=== PATIENT | male | born 1970 | race Caucasian/White ===

== ENCOUNTER 2019-06-14 17:28 | Emergency (ER) | payer MEDICAID, SELFPAY ==
[2019-06-14 17:30] VITALS: BP 141/69; PULSE 79; RESP 16; TEMP 36.6; O2SAT 99; BMI 36.9
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
== END 2019-06-14 18:54 | disposition home or self-care (01) ==
LOC: ED 18:44
PROVIDERS: Emergency Provider Emergency Medicine; PCP Family Medicine
DX: S61.211A Laceration without foreign body of left index finger without damage to nail, initial encounter (principal); S61.012A Laceration without foreign body of left thumb without damage to nail, initial encounter; Z87.891 Personal history of nicotine dependence; W26.0XXA Contact with knife, initial encounter; Y93.89 Activity, other specified; Y92.009 Unspecified place in unspecified non-institutional (private) residence as the place of occurrence of the external cause; Y99.8 Other external cause status
CPT/HCPCS: 12002; 99283

== ENCOUNTER → 2019-06-23 | Outpatient (CLI) | payer MEDICAID, SELFPAY ==
[2019-06-14 17:30] VITALS: BMI 36.9
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
== END | disposition home or self-care (01) ==
PROVIDERS: PCP Family Medicine; Referring Provider Family Medicine; Visit Provider Family Medicine
DX: S60.221A Contusion of right hand, initial encounter (principal)
CPT/HCPCS: 73130

== ENCOUNTER → 2019-07-10 | Outpatient (CLI) | payer MEDICAID, SELFPAY ==
[2019-06-14 17:30] VITALS: BMI 36.9
[2019-07-10 18:20] LABS: AST(SGOT) 23 U/L (15-37); Alanine Aminotransfer ALT/SGPT 51 U/L (16-61); Albumin, Serum 3.7 g/dL (3.2-5.0); Alkaline Phosphatase 109 U/L (45-117); Anion Gap 8 (5-15); BUN 21 mg/dL (7-18); BUN/Creat Ratio 19.1 RATIO (10-20); Calcium,Total 9.2 mg/dL (8.5-10.1); Chloride 98 mmol/L (98-107); Cholesterol 149 mg/dL (200); EST Glomerular Filtration Rate 76 mL/min (>60); Est Glom Filt Rate - Afr Amer 91 mL/min (>60); Globulin 3.8 g/dL (2.2-4.2); Glucose 258 mg/dL (74-106); High Density Lipoprotein 32 mg/dL; Potassium 4.6 mmol/L (3.5-5.1); Protein, Total 7.5 g/dL (6.4-8.2); Sodium Level 135 mmol/L (136-145); T4 Total, Thyroxin 8.2 ug/dL (4.5-12.1); Thyroid Stim Hormone (TSH) 1.82 uIU/mL (0.358-3.74); Triglycerides 216 mg/dL; Very Low Density Lipoprotein 43 mg/dL (5-40)
[2019-07-10 20:04] LABS: Hemoglobin A1c 10.5 % (3.8-5.6)
[2019-07-11 11:10] LABS: Microalbumin,Random Urine < 5.0 mg/L (NO RANGE EST.)
== END | disposition home or self-care (01) ==
LOC: MFPLAB 14:52
PROVIDERS: PCP Family Medicine; Referring Provider Family Medicine; Visit Provider Family Medicine
DX: E03.9 Hypothyroidism, unspecified (principal); E11.9 Type 2 diabetes mellitus without complications
CPT/HCPCS: 36415; 80048; 80061; 80076; 82043; 82570; 83036; 84436; 84443

== ENCOUNTER → 2019-07-21 | Outpatient (CLI) | payer MEDICAID, SELFPAY ==
[2019-07-17 09:24] VITALS: BMI 36.9
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
== END | disposition home or self-care (01) ==
LOC: MRI 16:50
PROVIDERS: PCP Family Medicine; Referring Provider Physician Assistant; Visit Provider Physician Assistant
DX: S69.91XA Unspecified injury of right wrist, hand and finger(s), initial encounter (principal)
CPT/HCPCS: 73218

== ENCOUNTER 2019-08-14 10:30 | Outpatient (RCR) | payer MEDICAID, SELFPAY ==
[2019-07-17 09:24] VITALS: BMI 36.9
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
== END 2019-08-14 19:00 | disposition home or self-care (01) ==
LOC: OT 10:30
PROVIDERS: PCP Family Medicine; Referring Provider Physician Assistant; Visit Provider Physician Assistant
DX: S69.91XD Unspecified injury of right wrist, hand and finger(s), subsequent encounter (principal)
CPT/HCPCS: 97035; 97110; 97140; 97166; 97530

== ENCOUNTER → 2019-12-13 06:26 | Outpatient (CLI) | payer MEDICAID, SELFPAY ==
[2019-10-25 09:43] VITALS: BMI 36.9
--- NOTE | 2019-12-13 14:02 | NEURO ---
NCS and/or EMG Patient Report Ordering Doctor: Ned Burden DATE OF SERVICE: 12/13/19 Hemant Taylor presents for electrodiagnostic testing of the right upper limb. He reports numbness, primarily in the fifth digit of the right hand. Electrodiagnostic findings: Right median motor nerve demonstrates normal distal latency with normal amplitude and reduced conduction velocity. Normal ulnar motor response, including conduction across the elbow. Borderline prolonged right ulnar F wave. Prolonged median sensory latency at the wrist is noted. Normal ulnar and radial sensory responses. Needle EMG, all muscles tested in the right upper limb, as well as the right cervical paraspinals, showed no evidence of denervation with normal motor unit action potentials. Electrodiagnostic impression: This is an abnormal study in the right upper limb 1. 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 This is mild to moderate in nature. 2. No electrodiagnostic evidence is noted for ulnar neuropathy, including cubital tunnel syndrome. 3 No electrodiagnostic evidence noted for cervical radiculopathy. With any further questions, please do not hesitate to contact me.
== END ==
PROVIDERS: PCP Family Medicine; Referring Provider Physician Assistant; Visit Provider Physician Assistant
DX: M79.641 Pain in right hand (principal)
CPT/HCPCS: 95886; 95910

== ENCOUNTER 2020-01-16 12:40 | Outpatient (RCR) | payer MEDICAID, SELFPAY ==
[2019-10-25 09:43] VITALS: BMI 36.9
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
--- NOTE | 2020-01-25 07:07 | HP.OT.NRP ---
DENNIS MCKEON was seen in my office for initial evaluation on . The following Plan of Care was established for this patient: This patient was last seen in our office 01/16/20. Pertinent comments regarding their Occupational therapy will appear below: pt seen for FCE only. At this point I will be discontinuing this patient from occupational therapy. I would be happy to see this patient again in the future if found appropriate by the physician. Thank you! Candis Cast, OTR/L, CHT
== END 2020-01-16 19:00 | disposition home or self-care (01) ==
LOC: OT 12:40
PROVIDERS: PCP Family Medicine; Referring Provider Orthopaedic Surgery; Visit Provider Orthopaedic Surgery
DX: S69.91XD Unspecified injury of right wrist, hand and finger(s), subsequent encounter (principal); M77.8 Other enthesopathies, not elsewhere classified
CPT/HCPCS: 97750

== ENCOUNTER → 2020-04-12 09:44 | Outpatient (CLI) | payer MEDICAID, SELFPAY ==
[2019-10-25 09:43] VITALS: BMI 36.9
[2020-04-12 12:35] LABS: AST(SGOT) 29 U/L (15-37); Alanine Aminotransfer ALT/SGPT 65 U/L (16-61); Cholesterol 154 mg/dL (200); High Density Lipoprotein 38 mg/dL; T4 Total, Thyroxin 10.5 ug/dL (4.5-12.1); Thyroid Stim Hormone (TSH) 2.45 uIU/mL (0.358-3.74); Triglycerides 192 mg/dL; Very Low Density Lipoprotein 38 mg/dL (5-40)
== END ==
PROVIDERS: PCP Family Medicine; Referring Provider Family Medicine; Visit Provider Family Medicine
DX: E03.9 Hypothyroidism, unspecified (principal); E78.5 Hyperlipidemia, unspecified
CPT/HCPCS: 36415; 80061; 84436; 84443; 84450; 84460

== ENCOUNTER 2020-04-25 07:34 | Outpatient (RCR) | payer MEDICAID, SELFPAY ==
[2019-10-25 09:43] VITALS: BMI 36.9
[2020-04-25] MEDS: COVID-19 VACC, MRNA(PFIZER)/PF 30 MCG/0.3 ML SYRINGE IM (10:32)
[2020-05-16] MEDS: COVID-19 VACC, MRNA(PFIZER)/PF 30 MCG/0.3 ML SYRINGE IM (09:54)
== END 2020-04-25 23:59 ==
LOC: IMMUN 07:34
PROVIDERS: PCP Family Medicine; Visit Provider Family Medicine
DX: Z23 Encounter for immunization (principal)
CPT/HCPCS: 0001A; 0002A; 91300

== ENCOUNTER → 2020-10-11 10:32 | Outpatient (CLI) | payer MEDICAID, SELFPAY ==
[2020-10-11 12:32] LABS: Anion Gap 4 (5-15); BUN 15 mg/dL (7-18); BUN/Creat Ratio 18.2 RATIO (10-20); Calcium,Total 9.5 mg/dL (8.5-10.1); Chloride 104 mmol/L (98-107); Creatinine, Serum 0.82 mg/dL (0.70-1.30); EST Glomerular Filtration Rate 105 mL/min (>60); Est Glom Filt Rate - Afr Amer 127 mL/min (>60); Glucose 189 mg/dL (74-106); Potassium 4.1 mmol/L (3.5-5.1); Sodium Level 137 mmol/L (136-145)
== END ==
PROVIDERS: PCP Family Medicine; Referring Provider Family Medicine; Visit Provider Family Medicine
DX: E78.5 Hyperlipidemia, unspecified (principal)
CPT/HCPCS: 36415; 80048; 84153; G0103

== ENCOUNTER 2021-03-31 08:32 | Day surgery (SDC) | payer MEDICAID, SELFPAY ==
[2021-03-31] VITALS (7 sets, daily range): BP systolic 99–139; BP diastolic 55–83; PULSE 50–65; RESP 16; TEMP 36.1–36.6; O2SAT 97–100; BMI 38.9
--- NOTE | 2021-03-31 08:36 | H&P.OPEN ---
HPI - General HPI Narrative DENNIS MCKEON, is a 51 M who presents for screening colonoscopy. Patient never had a previous colonoscopy. Patient's maternal grandfather did have colon cancer twice (in his 60s and 70s), patient's mother only has had polyps. Patient denies any chronic abdominal pain nausea/vomiting/reflux. Patient has bowel movements almost daily or every other day, denies any blood PFSH Medical History (Updated 03/26/21 @ 13:44 by Ysabel Cordova) Arthritis Diabetes High cholesterol Hypertension Non-smoker Thyroid disease Wears glasses Home Medications atorvastatin 40 mg PO QHS 06/14/19 [History Last Taken Unknown] levothyroxine 25 mcg PO DAILY 06/14/19 [History Last Taken Unknown] lisinopril 20 mg PO DAILY 06/14/19 [History Last Taken Unknown] pyridoxine (vitamin B6) 50 mg capsule 50 mg PO DAILY 07/17/19 [History Last Taken Unknown] vitamin B complex 1 tab PO DAILY 07/17/19 [History Last Taken Unknown] latanoprost 0.005 % eye drops 1 drp OPHTHALMIC QHS 12/19/19 [History Last Taken Unknown] metformin 500 mg tablet 1,000 mg PO DAILY tab 12/19/19 [History Last Taken Unknown] exenatide microspheres [Bydureon BCise] 2 mg SUBCUT QWEEK 03/26/21 [History Last Taken Unknown] glipizide 5 mg PO DAILY 03/26/21 [History Last Taken Unknown] Allergy/AdvReac Type Severity Reaction Status Date / Time ramipril [From Altace] Allergy Hives Verified 03/31/21 09:05 Surgical History (Updated 03/26/21 @ 13:44 by Ysabel Cordova) Hx of hand surgery Hx of tonsillectomy Social History (Updated 04/02/20 @ 10:[address] Keren Galvez, DO) Smoking Status: Former smoker Past Medical/Surgical History Planned Operation Planned Operative Procedure/s: COLONOSCOPY Previous Hospitalizations/Surgeries HX Hospitalizations: No Any Problems With Anesthesia: No You/Your Family Experience Fever (Hyperthermia) With Anes: No Cholinesterase deficiency: No Cardiovascular Hx of Irregular Heartbeat and/or Afib: No Hx Heart Attack: No Hx Congestive Heart Failure: No Hx Hypertension: Yes (CONTROLLED ON MED) Hx Internal Defibrillator: No Hx Pacemaker: No Respiratory Hx Chronic Obstructive Pulmonary Disease (COPD): No Hx Asthma: No Hx Emphysema: No Hx Sleep Apnea: No Hx Respiratory Tract Infection/Cold (presently): No Do You Snore Loudly (louder than talking or can be heard): No Do You Often Feel Tired/ Fatigued/ Sleepy Dring Daytime?: No Has Anyone Observed You Stop Breathing During Sleep?: No Result (for STOP score): Negative Smoking Status: Former smoker Gastrointestinal Hx Gastroesophageal Reflux: No Hx Ulcer: No Special diet followed at home: Yes Neurological Hx Seizures: No Hx Multiple Sclerosis: No Hx Parkinson's Disease: No Hx Head/Neck Injury: No Hx Headaches: No Hx Back Injury/Pain: No Does patient have nerve stimulator: No Blood Disorder Hx High Cholesterol: Yes Endocrine Hx Diabetes: Yes Psycho/Social Hx Anxiety: No Hx Depression: No Allergies ramipril [From Altace] Allergy (Verified 03/31/21 09:05) Hives Discharge Is Pt Admitted From a Alf, or a Penitentiary: No After D/C, Where Do you Plan to Go: Return Home Physical Exam Const alert, oriented x3 and no apparent distress HEENT normocephalic and head/scalp atraumatic Resp normal respiratory effort Cardio regular rate GI soft to palpation and non-tender; Negative for non-distended Palpation: Negative for guarding Extremity no clubbing, cyanosis or edema Neuro CN's II-XII intact bilaterally Psych mental status grossly normal Assessment & Plan Assessment/Plan (1) Encounter for screening for malignant neoplasm of colon: Procedure Criteria Type of Procedure Procedure Type: Elective Elective Risks - COVID COVID Risk Discussion: The surgeon/proceduralist and patient have discussed in detail the risk of exposure to and/or potential harm posed by the COVID-19 virus with having a surgery/procedure at this time versus the risk of delaying the surgery/procedure. It is not possible to know either the risk of delaying the surgery or procedure or chance of getting an infection with perfect accuracy, but a joint decision was made between the patient and the surgeon/proceduralist to proceed at this time with the scheduled surgery/procedure as indicated on the consent form. Surgery Risks - Colonoscopy Risks Include but are not Limited To: Risks include but are not limited to: Bleeding, perforation requiring further surgery, inability to complete colonoscopy requiring barium enema.
[2021-03-31] MEDS: Lactated Ringers 1,000 ML 15 ML IV (09:16)
--- NOTE | 2021-03-31 10:24 | OP.COLON_ITS ---
Patient Name: Hemant Taylor Procedure Date: 03/31/2021 9:14 AM Date of : 1970 Age: 51 Procedure: Colonoscopy Indications: Screening for colorectal malignant neoplasm Providers: Lashell Knapp MD Medicines: Monitored Anesthesia Care Patient Profile: This is a 51 year old male. Last Colonoscopy: none. The patient's first colonoscopy is today. Complications: No immediate complications. Procedure: Pre-Anesthesia Assessment: - Prior to the procedure, a History and Physical was performed, and patient medications and allergies were reviewed. The patient's tolerance of previous anesthesia was also reviewed. The risks and benefits of the procedure and the sedation options and risks were discussed with the patient. All questions were answered, and informed consent was obtained. Prior Anticoagulants: The patient has taken no previous anticoagulant or antiplatelet agents. ASA Grade Assessment: Per anesthesia. After reviewing the risks and benefits, the patient was deemed in satisfactory condition to undergo the procedure. After I obtained informed consent, the scope was passed under direct vision. Throughout the procedure, the patient's blood pressure, pulse, and oxygen saturations were monitored continuously. The colonoscope was introduced through the anus and advanced to the cecum, identified by the appendiceal orifice, ileocecal valve and palpation. The colonoscopy was technically difficult and complex due to poor bowel prep. Successful completion of the procedure was aided by lavage 2300 cc. The patient tolerated the procedure well. The quality of the bowel preparation was adequate after lavage. Scope In: 9:30:38 AM Scope Withdrawal Time 0 hours 31 minutes 7 seconds Scope Out: 10:19:22 AM Total Procedure Duration Time 0 hours 48 minutes 44 seconds Findings: The perianal and digital rectal examinations were normal. A single medium-mouthed diverticulum was found in the transverse colon. The exam was otherwise without abnormality. Impression: - Diverticulosis in the transverse colon. - The examination was otherwise normal. - No specimens collected. Recommendation: - Discharge patient to home. - High fiber diet. - Continue present medications. - Repeat colonoscopy in 7 years for screening purposes. Procedure Code(s): --- Professional --- G0121, PT, Colorectal cancer screening; colonoscopy on individual not meeting criteria for high risk Diagnosis Code(s): --- Professional --- Z12.11, Encounter for screening for malignant neoplasm of colon K57.30, Diverticulosis of large intestine without perforation or abscess without bleeding CPT copyright 2017 [employer]. All rights reserved. The codes documented in this report are preliminary and upon coal grader review may be revised to meet current compliance requirements. MD Lashell Omer MD 03/31/2021 10:24:11 AM This report has been signed electronically. Number of Addenda: 0 Note Initiated On: 03/31/2021 9:14 AM
--- NOTE | 2021-03-31 10:25 | OP.CCLET_ITS ---
03/31/2021 Radha Nguyen [address] [place] [address] Re : Colonoscopy procedure for Hemant Taylor Dear Dr. Nguyen This procedure was performed on Wednesday, March 31, 2021. My impressions and recommendations are as follows: Impressions : - Diverticulosis in the transverse colon. - The examination was otherwise normal. - No specimens collected. Recommendations : - Discharge patient to home. - High fiber diet. - Continue present medications. - Repeat colonoscopy in 7 years for screening purposes. My findings are described in the full procedure note, which is enclosed. If I can be of further assistance, please feel free to contact me at Doctor phone number(s): , Work: . Sincerely, MD Lashell Omer MD 03/31/2021 10:24:11 AM This report has been signed electronically.
== END 2021-03-31 23:59 | disposition home or self-care (01) ==
LOC: EN 08:33 → AC 08:35
PROVIDERS: PCP Family Medicine; Referring Provider Family Medicine; Visit Provider Surgery
PROC: 0DJD8ZZ Inspection of Lower Intestinal Tract, Via Natural or Artificial Opening Endoscopic (ICD-10-PCS; CPT 45378; principal; 2021-03-31 09:40)
DX: Z12.11 Encounter for screening for malignant neoplasm of colon (principal); E11.9 Type 2 diabetes mellitus without complications; K57.30 Diverticulosis of large intestine without perforation or abscess without bleeding; I10 Essential (primary) hypertension; Z87.891 Personal history of nicotine dependence; E78.00 Pure hypercholesterolemia, unspecified; Z80.0 Family history of malignant neoplasm of digestive organs; E07.9 Disorder of thyroid, unspecified; Z79.899 Other long term (current) drug therapy; Z79.84 Long term (current) use of oral hypoglycemic drugs; M19.90 Unspecified osteoarthritis, unspecified site
CPT/HCPCS: 45378; J7120; J2405

== ENCOUNTER → 2021-10-14 | Outpatient (CLI) | payer MEDICAID, SELFPAY ==
[2021-10-14 12:41] LABS: Anion Gap 6 (5-15); BUN 14 mg/dL (7-18); BUN/Creat Ratio 13.6 RATIO (10-20); Calcium,Total 9.4 mg/dL (8.5-10.1); Chloride 107 mmol/L (98-107); Creatinine, Serum 1.03 mg/dL (0.70-1.30); EST Glomerular Filtration Rate 81 mL/min (>60); Est Glom Filt Rate - Afr Amer 98 mL/min (>60); Glucose 138 mg/dL (74-106); Potassium 4.2 mmol/L (3.5-5.1); Sodium Level 139 mmol/L (136-145)
[2021-10-14 13:13] LABS: Hemoglobin A1c 6.7 % (3.8-5.6)
== END | disposition home or self-care (01) ==
LOC: MFPLAB 10:03
PROVIDERS: PCP Family Medicine; Visit Provider Family Medicine
DX: Z00.00 Encounter for general adult medical examination without abnormal findings (principal); E11.59 Type 2 diabetes mellitus with other circulatory complications; Z12.5 Encounter for screening for malignant neoplasm of prostate
CPT/HCPCS: 84153; 36415; 80048; 83036; G0103

== ENCOUNTER → 2022-10-13 | Outpatient (CLI) | payer MEDICAID, SELFPAY ==
[2022-10-13 13:08] LABS: AST(SGOT) 20 U/L (15-37); Alanine Aminotransfer ALT/SGPT 32 U/L (16-61); Albumin, Serum 3.8 g/dL (3.2-5.0); Alkaline Phosphatase 77 U/L (45-117); Anion Gap 5 (5-15); BUN 16 mg/dL (7-18); BUN/Creat Ratio 16.2 RATIO (10-20); Bilirubin, Direct 0.18 mg/dL (0.00-0.30); Calcium,Total 9.2 mg/dL (8.5-10.1); Chloride 106 mmol/L (98-107); Cholesterol 121 mg/dL (200); Creatinine, Serum 0.99 mg/dL (0.70-1.30); EST Glomerular Filtration Rate 84 mL/min (>60); Est Glom Filt Rate - Afr Amer 102 mL/min (>60); Globulin 3.7 g/dL (2.2-4.2); Glucose 165 mg/dL (74-106); High Density Lipoprotein 45 mg/dL; Potassium 4.2 mmol/L (3.5-5.1); Protein, Total 7.5 g/dL (6.4-8.2); Sodium Level 139 mmol/L (136-145); T4 Total, Thyroxin 9.1 ug/dL (4.5-12.1); Thyroid Stim Hormone (TSH) 1.59 uIU/mL (0.358-3.74); Triglycerides 93 mg/dL; Very Low Density Lipoprotein 19 mg/dL (5-40)
[2022-10-13 13:54] LABS: Microalbumin,Random Urine < 5.0 mg/L (NO RANGE EST.)
== END | disposition home or self-care (01) ==
LOC: MFPLAB 10:49
PROVIDERS: PCP Family Medicine; Visit Provider Family Medicine
DX: E11.9 Type 2 diabetes mellitus without complications (principal); E03.9 Hypothyroidism, unspecified
CPT/HCPCS: 36415; 80048; 80061; 80076; 82043; 82570; 84436; 84443

== ENCOUNTER → 2023-10-12 | Outpatient (CLI) | payer MEDICAID, SELFPAY ==
[2023-10-12 13:16] LABS: AST(SGOT) 27 U/L (15-37); Alanine Aminotransfer ALT/SGPT 30 U/L (16-61); Albumin, Serum 3.9 g/dL (3.2-5.0); Alkaline Phosphatase 61 U/L (45-117); Anion Gap 7 (5-15); BUN 13 mg/dL (7-18); BUN/Creat Ratio 12.7 RATIO (10-20); Bilirubin, Direct 0.15 mg/dL (0.00-0.30); Chloride 105 mmol/L (98-107); Cholesterol 125 mg/dL (200); Creatinine, Serum 1.02 mg/dL (0.70-1.30); EST Glomerular Filtration Rate 81 mL/min (>60); Est Glom Filt Rate - Afr Amer 98 mL/min (>60); Globulin 3.7 g/dL (2.2-4.2); Glucose 119 mg/dL (74-106); High Density Lipoprotein 35 mg/dL; PSA,Total - Annual Screen 0.89 ng/mL (0.00-4.00); Potassium 4.6 mmol/L (3.5-5.1); Protein, Total 7.6 g/dL (6.4-8.2); Sodium Level 138 mmol/L (136-145); Triglycerides 98 mg/dL; Very Low Density Lipoprotein 20 mg/dL (5-40)
[2023-10-12 13:16] LABS: Protein, Urine (Random) 11.2 mg/dL (<11.9); Protein:Creat Ratio 133 mg/g CRE (0-200)
== END | disposition home or self-care (01) ==
LOC: MFPLAB 10:14
PROVIDERS: PCP Family Medicine; Visit Provider Family Medicine
DX: Z12.5 Encounter for screening for malignant neoplasm of prostate (principal); E11.69 Type 2 diabetes mellitus with other specified complication; E11.59 Type 2 diabetes mellitus with other circulatory complications
CPT/HCPCS: 84153; 36415; 80048; 80061; 80076; 82570; 84156; G0103

== ENCOUNTER → 2024-05-09 | Outpatient (CLI) | payer MEDICAID, SELFPAY ==
[2024-05-09 16:10] LABS: Anion Gap 12 (5-15); BUN 13 mg/dL (4-19); BUN/Creat Ratio 11.8 RATIO (10-20); Calcium,Total 9.2 mg/dL (7.6-11.0); Carbon Dioxide 23.7 mmol/L (21.0-32.0); Chloride 104 mmol/L (98-108); Creatinine, Serum 1.09 mg/dL (0.70-1.20); EST Glomerular Filtration Rate 81 (>60); Glucose 138 mg/dL (70-99); Sodium Level 140 mmol/L (133-145)
== END | disposition home or self-care (01) ==
LOC: MTLAB 12:35
PROVIDERS: PCP Family Medicine; Referring Provider Family Medicine; Visit Provider Family Medicine
DX: E87.5 Hyperkalemia (principal)
CPT/HCPCS: 36415; 80048

== ENCOUNTER → 2024-10-23 | Outpatient (CLI) | payer MEDICAID, SELFPAY ==
[2024-10-23 10:19] LABS: Hematocrit 48.0 % (40-54); Hemoglobin 16.2 g/dL (13.0-16.5); Immature Granulocytes Count 0.020 X10^3/uL (0.0-0.0); Mean Corp Hgb Conc 33.8 g/dL (32-36); Mean Corpuscular Volume 84.8 fL (80-94); Mean Platelet Vol. 11.0 fl (6.2-12.0); NRBC Flagged by Analyzer 0 % (0-5); Platelet Count 242 K/mm3 (150-450); RBC Distribution Width CV 13.4 % (11.6-14.6); RBC Distribution Width SD 41.5 fl (35.1-43.9); Red Blood Count 5.66 M/mm3 (4.6-6.2); White Blood Count 5.8 K/mm3 (4.4-11.0)
[2024-10-23 10:56] LABS: AST(SGOT) 27 U/L (<=37); Alanine Aminotransfer ALT/SGPT 24 U/L (<=46); Albumin, Serum 4.4 g/dL (3.5-5.0); Alkaline Phosphatase 70 U/L (40-129); Anion Gap 10 (5-15); BUN 14 mg/dL (4-19); BUN/Creat Ratio 11.6 RATIO (10-20); Calcium,Total 9.7 mg/dL (7.6-11.0); Carbon Dioxide 24.9 mmol/L (21.0-32.0); Chloride 102 mmol/L (98-108); Cholesterol 104 mg/dL (<=200); Globulin 2.8 g/dL (2.2-4.2); Glucose 164 mg/dL (70-99); Low Density Lipoprotein Calc. 54 mg/dL; PSA,Total - Annual Screen 0.92 ng/mL (0.02-4.00); Potassium 4.3 mmol/L (3.3-5.1); Triglycerides 85 mg/dL; Very Low Density Lipoprotein 17 mg/dL (5-40); cholesterol:hdl ratio screen 3.15
== END | disposition home or self-care (01) ==
LOC: MFPLAB 08:56
PROVIDERS: PCP Family Medicine; Visit Provider Family Medicine
DX: Z12.5 Encounter for screening for malignant neoplasm of prostate (principal); E11.59 Type 2 diabetes mellitus with other circulatory complications; E11.69 Type 2 diabetes mellitus with other specified complication; E03.9 Hypothyroidism, unspecified
CPT/HCPCS: 84153; 36415; 80053; 80061; 83036; 84443; 85025; G0103